=== PATIENT | male | born 1985 | race Caucasian/White ===

== ENCOUNTER 2017-01-13 14:49 | Emergency (ER) | payer OTHER ==
[~2017-01-13 14:49] MED LIST: ALBUTEROL17 GM INH; BENADRYL PO; FAMOTIDINE PO; LOMOTIL TABLET1 TAB PO; NAPROSYN500 MG PO; NEXIUM PO; NO MEDICATIONS; PREDNISONE PO; PRILOSEC40 MG PO; TYLOX 5/500 CAP1 CAP PO; ZOFRAN PO
== END 2017-01-13 15:16 | disposition home or self-care (01) ==
LOC: SED 14:49
DX: L03.012 Cellulitis of left finger (principal); J44.9 Chronic obstructive pulmonary disease, unspecified; F17.210 Nicotine dependence, cigarettes, uncomplicated
CPT/HCPCS: 10060; 99283

== ENCOUNTER 2017-03-23 10:32 | Emergency (ER) | payer OTHER | END 2017-03-23 10:49 | disposition home or self-care (01) | LOC: SED 10:32 | DX: G56.03 Carpal tunnel syndrome, bilateral upper limbs (principal); F17.200 Nicotine dependence, unspecified, uncomplicated | CPT/HCPCS: 99282 ==